=== PATIENT | male | born 1990 | race Caucasian/White ===

== ENCOUNTER 2021-06-05 15:05 | Emergency (ER) | payer SELFPAY ==
[~2021-06-05] VITALS: Ht 193 cm; Wt 88.5 kg
[2021-06-05 16:31] LABS: CLARITY,URINE CLEAR (CLEAR); COLOR,URINE YELLOW (YELLOW); KETONES,URINE NEGATIVE (NEGATIVE); LEUKOCYTE ESTERASE ,URINE NEGATIVE (NEGATIVE); NITRITE,URINE NEGATIVE (NEGATIVE); PROTEIN,URINE DIPSTICK NEGATIVE (NEGATIVE); URINE UROBILINOGEN 0.2 mg/dL (0.2 - 1)
[2021-06-05 16:38] LABS: BACTERIA,URINE MANY /HPF
[2021-06-05] MEDS ORDERED: CYCLOBENZAPRINE5 MG PO (16:47)
[2021-06-05] MEDS ORDERED: KETOROLAC TROMETHAMINE 30 MG/ML VIAL IM PRN (17:00)
[2021-06-05] MEDS ORDERED: CYCLOBENZAPRINE HCL 10 MG TAB PO ONE (17:00)
== END 2021-06-05 17:26 | disposition home or self-care (01) ==
LOC: ER 15:16
DX: M54.50 Low back pain, unspecified (principal)
CPT/HCPCS: 72110; 81001; 99283; J1885